=== PATIENT | male | born 1945 | race Two or more races ===

== ENCOUNTER 2020-08-13 08:58 | Inpatient (IN) | payer OTHER ==
[~2020-08-13] VITALS: Ht 180.3 cm; Wt 90.7 kg
[2020-08-13] MEDS ORDERED: TOPROL XL50 M1 PO (10:51)
[2020-08-13] MEDS ORDERED: COZAAR25 MG PO (10:52)
[2020-08-13] MEDS ORDERED: ISORBIDE PO (10:53)
[2020-08-13] MEDS ORDERED: [UNRECOGNIZED DRUG - OTHER] PO (10:53)
[2020-08-13] MEDS ORDERED: ATORVASTATIN CA10 MG PO (10:53)
[2020-08-20] MEDS ORDERED: DOXAZOSIN MESYLA1 MG (11:44)
[2020-08-20] MEDS ORDERED: METOPROLOL TART50 MG (11:44)
[2020-08-20] MEDS ORDERED: ISOSORBIDE MONO30 M2 (11:44)
[2020-08-20] MEDS ORDERED: TAMSULOSIN HCL0.4 MG (11:44)
[2020-08-25] MEDS ORDERED: OXYC1TAB9 PO (14:58)
[2020-08-25] MEDS ORDERED: HYOSCYAMINE0.125 M1 SL (14:58)
== END 2020-08-25 15:46 | disposition home or self-care (01) | DRG 330 ==
LOC: SURG 08-20 08:00 → O/R 08-20 08:00 → SURH 08-20 08:30 → SURG 08-20 15:45
PROVIDERS: ADMIT Surgery; ATTEND Surgery
PROC: 07TB4ZZ Resection of Mesenteric Lymphatic, Percutaneous Endoscopic Approach (ICD-10-PCS; 2020-08-20)
PROC: 0DTF4ZZ Resection of Right Large Intestine, Percutaneous Endoscopic Approach (ICD-10-PCS; principal; 2020-08-20 08:30)
PROC: 30233N1 Transfusion of Nonautologous Red Blood Cells into Peripheral Vein, Percutaneous Approach (ICD-10-PCS; 2020-08-23)
DX: C18.3 Malignant neoplasm of hepatic flexure (principal); D62 Acute posthemorrhagic anemia; R59.0 Localized enlarged lymph nodes; K57.30 Diverticulosis of large intestine without perforation or abscess without bleeding; Z20.822 Contact with and (suspected) exposure to COVID-19

== ENCOUNTER 2020-08-16 06:00 | Day surgery (SDC) | payer OTHER ==
[~2020-08-16 06:00] MED LIST: ATORVASTATIN CA10 MG PO; COZAAR25 MG PO; ISORBIDE PO; TOPROL XL50 M1 PO; [UNRECOGNIZED DRUG - OTHER] PO
== END 2020-08-16 12:10 | disposition home or self-care (01) ==
LOC: AMB-ENDOS 06:00
PROVIDERS: ATTEND Surgery
DX: C18.3 Malignant neoplasm of hepatic flexure (principal)